=== PATIENT | male | born 1995 | race African-American/Black ===

== ENCOUNTER 2022-08-09 16:05 | Inpatient (IN) ==
[2022-08-09 19:08] LABS: Basophils # 0.1 10*3/uL (0.0-0.2); Basophils % 0.4 % (0.0-0.8); Eosinophils # 2.4 10*3/uL (0.0-0.87); Eosinophils % 10.8 % (0.00-10.9); Hemoglobin 16.2 GM/DL (14.0-18.0); Immature Granulocytes % 1.2 %; Immature Granulocytes Absolute 0.26 #; Lymphocytes # 1.1 10*3/uL (1.4-4.0); Lymphocytes % 4.9 % (21.2-54.2); Mean Corpuscular HGB Conc 32.4 GM/DL (32-36); Mean Corpuscular Volume 88.2 FL (87-102); Mean Platelet Volume 11.1 FL (9.6-12.0); Monocytes # 1.6 10*3/uL (0.11-0.8); Monocytes % 7.2 % (1.7-12.7); Neutrophils % 75.5 % (38.7-73.9); Platelet Count 255 T/CUMM (130-400); Red Blood Count 5.67 MC/CUMM (3.8-5.5); Red Cell Distribution Width 13.2 % (9.3-17.3); White Blood Count 22.4 T/CUMM (4-12)
[2022-08-09 19:27] LABS: Alanine Aminotransferase 29 U/L (16-61); Albumin 3.2 G/DL (3.4-5.0); Alkaline Phosphatase 60 U/L (45-117); Aspartate Amino Transferase 8 U/L (0-37); Bilirubin,Total < 0.39 MG/DL (0.20-1.00); Blood Urea Nitrogen 23 MG/DL (7-18); Calcium 7.4 MG/DL (8.5-10.1); Carbon Dioxide 7 MMOL/L (21-32); Chloride 106 MMOL/L (98-107); Glucose 248 MG/DL (74-106); Osmolality,Calculated 277.4 MOS/KG (273-304); Phosphorous 1.5 MG/DL (2.5-4.9); Potassium 3.8 MMOL/L (3.5-5.1); Sodium 133 MMOL/L (136-145); Total Protein 7.2 G/DL (6.4-8.2)
[2022-08-09] MEDS ORDERED: DOCUSATE SODIUM 100 MG CAPSULE PO PRN (19:36)
[2022-08-09] MEDS ORDERED: ALBUTEROL 2.5 MG/3 ML NEB RESP TX PRN (19:36)
[2022-08-09] MEDS ORDERED: ONDANSETRON 4 MG/2 ML VIAL IV PRN (19:36)
[2022-08-09] MEDS ORDERED: ACETAMINOPHEN 325 MG TABLET PO PRN (19:36)
[2022-08-09 19:42] LABS: Lymphocytes 6 % (20-55); Total Cells Counted 100
[2022-08-09 19:45] LABS: Platelet Estimate Adequate
[2022-08-09 20:22] LABS: Arterial Base Excess iSTAT -24 MMOL/L (-2.5-2.5); Arterial Bicarbonate iSTAT 4.6 MMOL/L (20-26); Arterial O2 Saturation iSTAT 98 % (95-100); Arterial PCO2 iSTAT 17 MM HG (35-48); Arterial PO2 iSTAT 138 MM HG (80-95); Arterial Total CO2 iSTAT 5 MMO/L (23-27); Arterial pH iSTAT 7.042 (7.35-7.45)
[2022-08-09 20:23] LABS: Bilirubin,Urine Negative (Negative); Blood, Urine Moderate mg/dL (Negative); Glucose,Urine (UA) >=500 mg/dL (Negative); Ketones,Urine 80 mg/dL (Negative); Mucus,Urine Occasional /LPF (Occasional); Nitrite,Urine Negative (Negative); Protein,Urine 100 mg/dL (Negative); RBC,Urine 1 /HPF (0-4); Urine Appearance CLEAR (Clear); Urine Color Straw (Yellow); Urine Specific Gravity 1.024 (1.001-1.035); Urine Urobilinogen < 2.0 eU/dL (<2.0)
[2022-08-09] MEDS ORDERED: SODIUM PHOSPHATE INJ 23.3 MMOL in SODIUM CHLORIDE 0.9% 250 ML IV PRN (20:28)
[2022-08-09] MEDS ORDERED: MAGNESIUM SULF RIDER 2 GM/50 ML PREMIX IV PRN (20:28)
[2022-08-09] MEDS ORDERED: SODIUM BICARB INJ 100 MEQ in STERILE WATER INJ 400 ML IV PRN (20:28)
[2022-08-09] MEDS ORDERED: MAGNESIUM SULF RIDER 4 GM/100 ML PREMIX IV PRN (20:28)
[2022-08-09] MEDS: INSULIN REGULAR DRIP 100 ML IV PRN (20:30)
[2022-08-09] MEDS ORDERED: DEXTROSE 10% 250 ML BAG IV PRN ×2 (20:42→20:43)
[2022-08-09] MEDS: DEXTROSE 5% NACL 0.45% 1,000 ML IV SCH (20:45)
[2022-08-09] MEDS: ENOXAPARIN 40 MG/0.4 ML SYRINGE SUBCUT SCH (21:05)
[2022-08-10 00:20] LABS: Arterial Base Excess iSTAT -19 MMOL/L (-2.5-2.5); Arterial Bicarbonate iSTAT 7.8 MMOL/L (20-26); Arterial O2 Saturation iSTAT 93 % (95-100); Arterial PCO2 iSTAT 22 MM HG (35-48); Arterial PO2 iSTAT 84 MM HG (80-95); Arterial Total CO2 iSTAT 8 MMO/L (23-27); Arterial pH iSTAT 7.165 (7.35-7.45)
[2022-08-10 00:43] LABS: Potassium 3.6 MMOL/L (3.5-5.1)
[2022-08-10 00:45] LABS: Calcium 7.9 MG/DL (8.5-10.1)
[2022-08-10 00:47] LABS: Osmolality,Calculated 278.1 MOS/KG (273-304)
[2022-08-10] MEDS: DEXT 5% NACL 0.45% KCL 20 MEQ 20 MEQ/1,000 ML BAG IV SCH ×3 (01:07→18:03)
[2022-08-10] MEDS: DEXTROSE 5% NACL 0.45% 1,000 ML IV SCH (01:08)
[2022-08-10] MEDS ORDERED: SODIUM CHLORIDE 0.9% 1,000 ML IV SCH (01:30)
[2022-08-10 02:41] LABS: Arterial Base Excess iSTAT -15 MMOL/L (-2.5-2.5); Arterial Bicarbonate iSTAT 10.7 MMOL/L (20-26); Arterial O2 Saturation iSTAT 97 % (95-100); Arterial PCO2 iSTAT 27 MM HG (35-48); Arterial PO2 iSTAT 112 MM HG (80-95); Arterial Total CO2 iSTAT 12 MMO/L (23-27); Arterial pH iSTAT 7.211 (7.35-7.45)
[2022-08-10 04:20] LABS: Hemoglobin 15.9 GM/DL (14.0-18.0); Red Blood Count 5.58 MC/CUMM (3.8-5.5); White Blood Count 17.8 T/CUMM (4-12)
[2022-08-10 04:21] LABS: Basophils % 0.2 % (0.0-0.8); Eosinophils # 1.3 10*3/uL (0.0-0.87); Eosinophils % 7.5 % (0.00-10.9); Hematocrit 47.6 VOL% (42.0-52.0); Immature Granulocytes % 0.8 %; Immature Granulocytes Absolute 0.14 #; Lymphocytes % 5.4 % (21.2-54.2); Mean Corpuscular HGB Conc 33.4 GM/DL (32-36); Mean Corpuscular Volume 85.3 FL (87-102); Mean Platelet Volume 11.1 FL (9.6-12.0); Monocytes # 2.1 10*3/uL (0.11-0.8); Monocytes % 11.7 % (1.7-12.7); Neutrophils % 74.4 % (38.7-73.9); Platelet Count 205 T/CUMM (130-400); Red Cell Distribution Width 13.2 % (9.3-17.3)
[2022-08-10 04:37] LABS: Albumin 3.1 G/DL (3.4-5.0); Bilirubin,Total 0.4 MG/DL (0.20-1.00); Calcium 7.6 MG/DL (8.5-10.1); Total Protein 6.7 G/DL (6.4-8.2)
[2022-08-10] MEDS: POTASSIUM CHLORIDE RIDER 10 MEQ/100 ML PREMIX IV PRN ×3 (04:51→06:47)
[2022-08-10 05:02] LABS: Band Neutrophils 1 % (0-10); Lymphocytes 9 % (20-55); Platelet Estimate Adequate; Total Cells Counted 100
[2022-08-10 05:52] LABS: Arterial Base Excess iSTAT -15 MMOL/L (-2.5-2.5); Arterial Bicarbonate iSTAT 10.8 MMOL/L (20-26); Arterial O2 Saturation iSTAT 98 % (95-100); Arterial PCO2 iSTAT 26 MM HG (35-48); Arterial PO2 iSTAT 117 MM HG (80-95); Arterial Total CO2 iSTAT 12 MMO/L (23-27); Arterial pH iSTAT 7.225 (7.35-7.45)
[2022-08-10 08:10] LABS: Calcium 7.9 MG/DL (8.5-10.1); Osmolality,Calculated 275.7 MOS/KG (273-304); Potassium 3.2 MMOL/L (3.5-5.1)
[2022-08-10] MEDS ORDERED: POTASSIUM PHOSPHATE 30 MMOL in SODIUM CHLORIDE 0.9% 250 ML IV ONE (08:30)
[2022-08-10] MEDS: ROSUVASTATIN 10 MG TABLET PO SCH (09:02)
[2022-08-10] MEDS: PANTOPRAZOLE 40 MG TABLET PO SCH (09:02)
[2022-08-10] MEDS: POTASSIUM CHLORIDE 20 MEQ TABLET PO PRN ×4 (09:18→23:00)
[2022-08-10] MEDS: INSULIN REGULAR DRIP 100 ML IV PRN (09:25)
[2022-08-10 12:43] LABS: Calcium 8.1 MG/DL (8.5-10.1); Osmolality,Calculated 276.7 MOS/KG (273-304); Potassium 3.8 MMOL/L (3.5-5.1)
[2022-08-10] MEDS ORDERED: SODIUM CHLORIDE 0.45% 1,000 ML IV SCH (13:30)
[2022-08-10] MEDS: SODIUM CHLOR 0.45% KCL 20 MEQ 20 MEQ/1,000 ML BAG IV SCH ×2 (13:37→23:07)
[2022-08-10 17:17] LABS: Calcium 8.1 MG/DL (8.5-10.1); Osmolality,Calculated 275.8 MOS/KG (273-304); Potassium 3.4 MMOL/L (3.5-5.1)
[2022-08-10] MEDS: ENOXAPARIN 40 MG/0.4 ML SYRINGE SUBCUT SCH (20:10)
[2022-08-10 20:54] LABS: Calcium 8.3 MG/DL (8.5-10.1); Osmolality,Calculated 274.8 MOS/KG (273-304); Potassium 3.4 MMOL/L (3.5-5.1)
[2022-08-11 00:40] LABS: Calcium 8.1 MG/DL (8.5-10.1); Osmolality,Calculated 278.4 MOS/KG (273-304); Potassium 3.6 MMOL/L (3.5-5.1)
[2022-08-11] MEDS: POTASSIUM CHLORIDE 20 MEQ TABLET PO PRN ×4 (02:07→11:04)
[2022-08-11] MEDS: DEXT 5% NACL 0.45% KCL 20 MEQ 20 MEQ/1,000 ML BAG IV SCH ×2 (02:18→09:20)
[2022-08-11 04:42] LABS: Basophils % 0.4 % (0.0-0.8); Eosinophils # 0.1 10*3/uL (0.0-0.87); Eosinophils % 0.7 % (0.00-10.9); Hematocrit 44.1 VOL% (42.0-52.0); Hemoglobin 15.2 GM/DL (14.0-18.0); Immature Granulocytes % 0.5 %; Immature Granulocytes Absolute 0.04 #; Lymphocytes # 1.2 10*3/uL (1.4-4.0); Lymphocytes % 14.9 % (21.2-54.2); Mean Corpuscular HGB Conc 34.5 GM/DL (32-36); Mean Corpuscular Volume 82.1 FL (87-102); Mean Platelet Volume 10.9 FL (9.6-12.0); Monocytes # 1.2 10*3/uL (0.11-0.8); Monocytes % 14.4 % (1.7-12.7); Neutrophils % 69.1 % (38.7-73.9); Platelet Count 192 T/CUMM (130-400); Red Blood Count 5.37 MC/CUMM (3.8-5.5); Red Cell Distribution Width 13.2 % (9.3-17.3); White Blood Count 8.2 T/CUMM (4-12)
[2022-08-11 04:58] LABS: Calcium 8.4 MG/DL (8.5-10.1); Osmolality,Calculated 280.4 MOS/KG (273-304); Potassium 3.5 MMOL/L (3.5-5.1)
[2022-08-11 05:02] LABS: Albumin 2.9 G/DL (3.4-5.0); Bilirubin,Total 0.5 MG/DL (0.20-1.00); Calcium 8.5 MG/DL (8.5-10.1); Osmolality,Calculated 280.4 MOS/KG (273-304); Potassium 3.4 MMOL/L (3.5-5.1); Total Protein 6.3 G/DL (6.4-8.2)
[2022-08-11 05:03] LABS: Risk Ratio 3.79; VLDL Cholesterol 20.4 MG/DL
[2022-08-11] MEDS: SODIUM CHLOR 0.45% KCL 20 MEQ 20 MEQ/1,000 ML BAG IV SCH (05:20)
[2022-08-11] MEDS ORDERED: GLUCAGON 1 MG VIAL IM PRN (08:12)
[2022-08-11 08:14] LABS: Calcium 8.1 MG/DL (8.5-10.1); Osmolality,Calculated 278.4 MOS/KG (273-304); Potassium 3.3 MMOL/L (3.5-5.1)
[2022-08-11] MEDS ORDERED: DEXTROSE 10% 250 ML BAG IV PRN (08:18)
[2022-08-11] MEDS: ROSUVASTATIN 10 MG TABLET PO SCH (08:40)
[2022-08-11] MEDS: LOSARTAN 25 MG TABLET PO SCH (08:40)
[2022-08-11] MEDS: PANTOPRAZOLE 40 MG TABLET PO SCH (08:40)
[2022-08-11] MEDS: INSULIN GLARGINE 100 UNIT/ML SUBCUT SCH (09:25)
[2022-08-11] MEDS: INSULIN LISPRO 100 UNIT/ML SUBCUT SCH ×3 (11:35→21:30)
[2022-08-11] MEDS: ENOXAPARIN 40 MG/0.4 ML SYRINGE SUBCUT SCH (21:31)
[2022-08-12 06:24] LABS: Basophils % 0.5 % (0.0-0.8); Eosinophils # 0.1 10*3/uL (0.0-0.87); Eosinophils % 1.8 % (0.00-10.9); Hematocrit 43.6 VOL% (42.0-52.0); Hemoglobin 14.9 GM/DL (14.0-18.0); Immature Granulocytes % 0.7 %; Immature Granulocytes Absolute 0.04 #; Lymphocytes # 1.6 10*3/uL (1.4-4.0); Lymphocytes % 28.2 % (21.2-54.2); Mean Corpuscular HGB Conc 34.2 GM/DL (32-36); Mean Corpuscular Volume 83.2 FL (87-102); Mean Platelet Volume 11.1 FL (9.6-12.0); Monocytes # 0.9 10*3/uL (0.11-0.8); Monocytes % 15.9 % (1.7-12.7); Neutrophils % 52.9 % (38.7-73.9); Platelet Count 185 T/CUMM (130-400); Red Blood Count 5.24 MC/CUMM (3.8-5.5); Red Cell Distribution Width 12.7 % (9.3-17.3); White Blood Count 5.7 T/CUMM (4-12)
[2022-08-12 06:55] LABS: Lymphocytes 26 % (20-55); Platelet Estimate Adequate; Total Cells Counted 100
[2022-08-12 06:59] LABS: Albumin 2.9 G/DL (3.4-5.0); Bilirubin,Total 0.6 MG/DL (0.20-1.00); Calcium 8.3 MG/DL (8.5-10.1); Osmolality,Calculated 281.4 MOS/KG (273-304); Potassium 3.1 MMOL/L (3.5-5.1); Total Protein 6.3 G/DL (6.4-8.2)
[2022-08-12] MEDS: INSULIN LISPRO 100 UNIT/ML SUBCUT SCH ×3 (08:56→16:41)
[2022-08-12] MEDS: ROSUVASTATIN 10 MG TABLET PO SCH (08:57)
[2022-08-12] MEDS: LOSARTAN 25 MG TABLET PO SCH (08:57)
[2022-08-12] MEDS: PANTOPRAZOLE 40 MG TABLET PO SCH (08:57)
[2022-08-12] MEDS: INSULIN GLARGINE 100 UNIT/ML SUBCUT SCH (08:57)
[2022-08-12] MEDS ORDERED: DAPAGLIFLOZIN 10 MG TABLET PO SCH (09:00)
[2022-08-12] MEDS ORDERED: POTASSIUM PHOSPHATE 30 MMOL in SODIUM CHLORIDE 0.9% 250 ML IV ONE (10:00)
[2022-08-12] MEDS ORDERED: INSULIN GLARGINE 100 UNIT/ML SUBCUT SCH (12:00)
[2022-08-12] MEDS: POTASSIUM CHLORIDE 20 MEQ TABLET PO PRN (12:29)
[2022-08-12 17:03] VITALS: BP 142/91
== END 2022-08-12 18:45 | disposition home or self-care (01) | DRG 637 ==
LOC: SUATTDRO 18:41 → N.CC 18:41 → N.5E 08-11 16:39
PROVIDERS: ADMIT Family Medicine; ATTEND Internal Medicine